=== PATIENT | male | born 1950 | race Caucasian/White ===

== ENCOUNTER → 2016-12-02 | Outpatient (CLI) | payer OTHER ==
[~2016-12-02] MED LIST: AMBIEN10 MG PO; ASPIRIN325 MG PO; NORCO 5-325 TA1 EACH PO; VALIUM5 MG PO; ZANTAC300 MG PO; ZESTRIL40 MG PO
== END | disposition disaster alternative care site (69) ==
LOC: GPOC 11-26 09:00 → GRAD 14:35 → GPOC 15:30
PROC: 3E0R33Z Introduction of Anti-inflammatory into Spinal Canal, Percutaneous Approach (ICD-10-PCS; principal; 2016-12-02)
PROC: 3E0R3BZ Introduction of Anesthetic Agent into Spinal Canal, Percutaneous Approach (ICD-10-PCS; 2016-12-02)
DX: M47.22 Other spondylosis with radiculopathy, cervical region (principal); M54.2 Cervicalgia
CPT/HCPCS: J1040

== ENCOUNTER 2017-01-22 14:00 | Inpatient (IN) | payer OTHER ==
[~2017-01-22] VITALS: Ht 182.9 cm; Wt 80.7 kg
--- NOTE | ~2017-01-22 | OR ---
PATIENT'S NAME: GERARDO NUNEZ [facility] AGE: 66 Y [address] ROOM: [address] [address] LOCATION: [facility] ADMIT DATE: 01/24/2017 OR/Procedure Report DISCHARGE DATE: 01/25/2017 FAMILY PHYSICIAN: Jim Tovar PA-C ATTENDING PHYSICIAN: Ana Gregory SURGEON: Ana Gregory MD INFORMATION RESOURCE CONSULTANT: Cathryn Wood CST. DATE OF PROCEDURE: 01/24/2017 PREOPERATIVE DIAGNOSIS: Lumbar spinal stenosis. POSTOPERATIVE DIAGNOSIS: Lumbar spinal stenosis. PROCEDURES PERFORMED: 1. Bilateral laminectomy with decompression of neural elements and foraminotomy at L3-L4. 2. Bilateral laminectomy with decompression of neural elements and foraminotomy with bilateral diskectomy at L4-L5. 3. Use of operative microscope. ANESTHESIA: General. ANESTHESIA PROVIDER: Rick Joseph MD. HISTORY: This patient is a 66-year-old gentleman, who presented with back pain radiating down his legs. Both sides were equally affected. He also had numbness and tingling associated with the pain. Lumbar spine MRI showed spinal stenosis at L3-L4 and L4-L5, particularly in the foramen. The stenosis was worse at the L4-L5 level. Surgery was recommended. The procedures above along with the benefits and risks were discussed with the patient. With his consent, he was taken to the Operating Room for surgery. PROCEDURE IN DETAIL: In the Operating Room, the patient was placed in a supine position. Anesthesia was induced. He was intubated. An incision was marked out in the midline of his lower back, and the whole area was prepped and draped in a sterile fashion. Local anesthesia was infiltrated. The #10- blade was used to open the skin and deepen the incision to the fascial layer. Self-retaining retractors were placed. A Bovie was used to open the fascia and deepen the incision to the tips of the spinous processes. The paraspinous muscles were dissected down the spinous processes and laminae of L3, L4, and L5. The retractors were adjusted. Intraoperative x-ray was obtained to confirm that we were at the desired levels. PATIENT'S NAME: GERARDO NUNEZ [facility] AGE: 66 Y [address] ROOM: [facility] [place], [place] [address] LOCATION: [facility] ADMIT DATE: 01/24/2017 OR/Procedure Report DISCHARGE DATE: 01/25/2017 FAMILY PHYSICIAN: Jim Tovar PA-C ATTENDING PHYSICIAN: Ana Gregory Laminectomy was then carried out bilaterally at L3, L4, and L5. The laminae of each vertebrae were drilled down on both sides. The rongeur was then used to break up the transverse process and as much of the lamina as possible. This was done for L3, L4, and L5. The [place] rongeur was then used to continue the laminectomy by decompressing the central canal. The microscope was brought in at this point, and under microscopic vision, the central canal was decompressed. The laminectomy was extended to the edges of the lamina. The lateral recesses were decompressed as well. The nerve roots began to be visible. Working very carefully, the nerve roots at L3-L4 and L4-L5 were decompressed. The disk was bulging significantly at L4-L5. Bilateral diskectomy was therefore performed at this level to further decompress the nerves. At the end of the procedure, the central canal and the foramina were completely decompressed, and the nerve roots could be seen going out into their foramina without restriction. WOUND CLOSURE: Irrigation was used to wash out the debris, and wax was used to wax the edges of the laminectomy. Fibrillar was used to control epidural bleeding. The incision was then closed in layers using appropriate suture materials. A sterile dressing was applied. The patient was rolled back to a supine position. His anesthesia was reversed. DISPOSITION: He was extubated and taken to the Recovery Room to complete recovery. ATTESTATION: I was present at and performed every aspect of this procedure, assisted at some stages by the Operating Room nurses. COMPLICATIONS: There were no apparent intraoperative complications. COUNT RESULTS: Swabs, needles, and instruments were all accounted for at the end of the case. ESTIMATED BLOOD LOSS: 300 mL, and there was no reason for blood transfusion. I expect the patient to benefit from this procedure. ANA GREGORY MD PATIENT'S NAME: GERARDO NUNEZ [facility] AGE: 66 Y [address] ROOM: [address] [id number] LOCATION: [facility] ADMIT DATE: 01/24/2017 OR/Procedure Report DISCHARGE DATE: 01/25/2017 FAMILY PHYSICIAN: Jim Tovar PA-C ATTENDING PHYSICIAN: Ana Gregory/julissa /[id number] d: 01/28/17 0138 t: 01/29/17 1540, OPERATIVE SUMMARY
[~2017-01-22 14:00] MED LIST changes: -VALIUM5 MG PO
--- NOTE | 2017-01-24 18:09 | NUR ---
Significant Event: From PACU at 1215. Dressing to lower back C/D/I. Ambulates with one assist, walker and gaitbelt. [place] 1 tab last at 1555. CSM WNL. Last post-op vital due at 1900. Plans to dismiss to home tomorrow. Follow up:
--- NOTE | 2017-01-25 03:10 | NUR ---
Shift Summary: Patient can ambulate with standby assist and walker. Good pain control with [place]. Voiding without difficulty. Tolerating regular diet well.
[2017-01-25] MEDS ORDERED: VALIUM5 MG PO (12:11)
[2017-01-25] MEDS ORDERED: NORCO 5-325 TA1 EACH PO (12:14)
--- NOTE | 2017-01-25 13:36 | NUR ---
pt given discharge instructions and voices understanding. medications and dressing changes reviewed. in the room and also understands. escorted to the front door by this nurse. pain pill prior to discharge.
== END 2017-01-25 12:54 | disposition disaster alternative care site (69) | DRG 520 ==
LOC: G3N 01-24 05:59
PROVIDERS: ADMIT Neurological Surgery
PROC: 0SB20ZZ Excision of Lumbar Vertebral Disc, Open Approach (ICD-10-PCS; principal; 2017-01-24)
PROC: 01NB0ZZ Release Lumbar Nerve, Open Approach (ICD-10-PCS; principal; 2017-01-24)
DX: M48.06 Spinal stenosis, lumbar region (principal); I10 Essential (primary) hypertension; F17.220 Nicotine dependence, chewing tobacco, uncomplicated
CPT/HCPCS: J0690; J1040; J1100; J1170; J2001; J2250; J2270; J2405; J3360; J7030